=== PATIENT | female | born 1960 | race Caucasian/White ===

== ENCOUNTER → 2017-05-29 | Day surgery (SDC) | payer BC, MEDICARE ==
[2017-05-24 10:27] VITALS: BMI 25.0
[~2017-05-29] VITALS: Ht 162.6 cm; Wt 68.2 kg
[~2017-05-29] MED LIST: AMIT10TA6 PO; AMLO-110 PO; ASPI81TA28 PO; ATEN-173 PO; ATOR-26 PO; FLUO40CA8 PO; FLUT1INH INH; KETAMINE HCL INJ 50 MG/ML 10 ML VIAL ONE; LEVO200T PO; LEVO25TA5 PO; LIDOCAINE HCL 2% 2 ML VIAL (20MG/ML) ONE; NTRGSL/4 UT; ONDANSETRON INJ 2 MG/ML 2 ML VIAL IV PRN; PROPOFOL IV EMULSION 10 MG/ML 20 ML VIAL IV ONE; VIT PO; VNTHFA/IN INH; ZOLP10TA6 PO
[2017-05-29 09:17] VITALS: Ht 162.6 cm; Wt 68.2 kg
[2017-05-29 09:35] VITALS: TEMP 36.9
--- NOTE | 2017-05-29 09:53 | Endo History and Physical ---
History & Physical Date of Service: May 29, 2017. Chief Complaint: SCREENING HX POLYPS Referring Physician: DR. SERVIN History of Present Illness Patient with a history of non-advanced colon polyps. Presents for surveillance colonoscopy today. Past Surgical History Hx Cardiac Surgery: Yes (HEART CATH, NO STENTS) Hx Internal Defibrillator: No Hx Pacemaker: No Hx Abdominal Surgery: Yes (PARTIAL HYSTER, FULL HYSTER, LAPAROSCOPIES X4-5, DYAN) Hx of Implantable Prosthesis: No Hx Post-Op Nausea and Vomiting: No Hx Cancer Surgery: No Hx Thoracic Surgery: Yes (BRONCHIAL BIOPSY(?)) Hx Orthopedic: No Hx Urinary Tract Surgery: No Hysterectomy Splenic repair Cholecystectomy Family History Esophogeal CA Social History Smoking Status: Current Every Day Smoker Hx Substance Use: No Hx Alcohol Use: No Allergies Coded Allergies: NO KNOWN DRUG ALLERGIES (Verified Allergy, Unknown, ., 05/29/17) Uncoded Allergies: Metal (Allergy, Intermediate, Rash, infection, 08/19/13) Current Medications Reported Home Medications Medications Dose Route/Sig Max Daily Dose Days Date Category [Vit ] 500 PO 05/29/17 Reported Nitrostat (Nitroglycerin) 0.4 Mg Tab 0.4 Mg UT UD PRN 05/24/17 Reported Breo Ellipta (Fluticasone Furoate-Vilanterol) 1 Inh Inh 1 Puff INH QAM 05/24/17 Reported Ventolin Hfa (Albuterol) 200 Puffs/07772 Mcg Aers 2-4 Puffs INH Q6H PRN 05/24/17 Reported Norvasc (Amlodipine Besylate) 5 Mg Tab 5 Mg PO QAM 05/24/17 Reported Lipitor (Atorvastatin Calcium) 80 Mg Tab 80 Mg PO QAM 05/24/17 Reported Levothyroxine Sodium 25 Mcg Tab 1 Tab PO QAM 05/24/17 Reported Elavil (Amitriptyline Hcl) 10 Mg Tab 10 Mg PO HS 05/24/17 Reported Prozac (Fluoxetine HCl) 40 Mg Cap 40 Mg PO HS 05/24/17 Reported Aspirin Ec (Aspirin) 81 Mg Tab 81 Mg PO QAM 08/19/13 Reported Zolpidem Tartrate 10 Mg Tab 10 Mg PO HS 08/19/13 Reported Tenormin (Atenolol) 25 Mg Tab 2 Tabs PO QAM 08/19/13 Reported Synthroid (Levothyroxine Sodium) 200 Mcg Tab 200 Mcg PO QAM 08/19/13 Reported Vital Signs Weight (Kilograms): 68.18 Height (Feet): 5 Height (Inches): 4 Date Time Temp Pulse Resp B/P (MAP) Pulse Ox O2 Delivery O2 Flow Rate FiO2 05/29/17 09:35 36.9 67 22 138/66 (90) 91 Room Air Physical Exam General Appearance: no apparent distress Respiratory/Chest: Auscultation: deminished air movement Cardiovascular: Heart Auscultation: RRR Abdomen: Inspection & Palpation: soft Assessment and Plan Patient for colonoscopy today to screen for colon polyps. We discussed the risks and benefits to include bleeding, infection, perforation and discomfort.
--- NOTE | 2017-05-29 10:32 | GI REPORT ---
Procedure Date: 05/29/2017 9:59 AM Procedure: Colonoscopy Indications: High risk colon cancer surveillance: Personal history of colonic polyps Medicines: Monitored Anesthesia Care Complications: No immediate complications. Estimated blood loss: Minimal. Estimated Blood Loss: Estimated blood loss was minimal. Procedure: Pre-Anesthesia Assessment: - Prior to the procedure, a History and Physical was performed, and patient medications, allergies and sensitivities were reviewed. The patient's tolerance of previous anesthesia was reviewed. - The risks and benefits of the procedure and the sedation options and risks were discussed with the patient. All questions were answered and informed consent was obtained. - Patient identification and proposed procedure were verified prior to the procedure by the physician, the nurse and the clothes shaker. The procedure was verified in the procedure room. - Pre-procedure physical examination revealed no contraindications to sedation. - ASA Grade Assessment: IV - A patient with severe systemic disease that is a constant threat to life. - After reviewing the risks and benefits, the patient was deemed in satisfactory condition to undergo the procedure. - The anesthesia plan was to use monitored anesthesia care (MAC). - Immediately prior to administration of medications, the patient was re-assessed for adequacy to receive sedatives. - The heart rate, respiratory rate, oxygen saturations, blood pressure, adequacy of pulmonary ventilation, and response to care were monitored throughout the procedure. - The physical status of the patient was re-assessed after the procedure. After I obtained informed consent, the scope was passed under direct vision. Throughout the procedure, the patient's blood pressure, pulse, and oxygen saturations were monitored continuously. The scope was introduced through the anus and advanced to the cecum, identified by appendiceal orifice and ileocecal valve. The scope was introduced through the and advanced to. The colonoscopy was technically difficult and complex due to restricted mobility of the colon and a tortuous colon. Successful completion of the procedure was aided by withdrawing the scope and replacing with the pediatric colonoscope and applying abdominal pressure. The patient tolerated the procedure well. The quality of the bowel preparation was good. Findings: The perianal and digital rectal examinations were normal. Pertinent negatives include normal sphincter tone. Internal hemorrhoids were found during retroflexion. The hemorrhoids were mild. The exam was otherwise without abnormality. Impression: - Internal hemorrhoids. - The examination was otherwise normal. - No specimens collected. Recommendation: - Discharge patient to home (ambulatory). - Advance diet as tolerated today. - Repeat colonoscopy in 5 years for surveillance. - Return to GI office PRN. Bk Guillory D.O. Bk Guillory, 05/29/2017 10:31:34 AM This report has been signed electronically. Note Initiated On: 05/29/2017 9:59 AM I attest to the content of the Intraoperative Record and orders documented therein, exceptions below
--- NOTE | 2017-05-29 10:33 | Discharge Instructions ---
Endoscopy Patient Instructions Date / Procedure(s) Performed May 29, 2017. Colonoscopy Allergy Information Coded Allergies: NO KNOWN DRUG ALLERGIES (Verified Allergy, Unknown, ., 05/29/17) Uncoded Allergies: Metal (Allergy, Intermediate, Rash, infection, 08/19/13) Discharge Date / Findings May 29, 2017. Interal hemorrhoids Provider Instructions Activity Restrictions - No exercising or heavy lifting for 24 hours. - Do not drink alcohol the day of the procedure. - Do not drive a car or operate machinery until the day after the procedure. - Do not make any important decisions or sign important papers in 24 hours after the procedure. Following Day: - Return to full activity which may include returning to work/school. Diet Start your diet with liquids and light foods (jello, soup, juice, toast). Then eat your usual diet if not nauseated. Treatment For Common After Affects For mild abdominal pain, bloating, or excessive gas: - Rest - Eat lightly - Lie on right side Follow-Up Information Repeat colonoscopy in 5 years Anesthesia Information What You Should Know You have had a procedure that required some medicine to reduce anxiety and discomfort. This treatment is called moderate sedation. After receiving the treatment, you may be sleepy, but you will be able to breathe on your own. The effects of the treatment may last for several hours. Follow these instructions along with Activity/Diet recommendations noted above: * Do NOT do anything where dizziness or clumsiness would be dangerous. * Rest quietly at home today, then you can be up and about tomorrow. * Have a responsible person stay with you the rest of today. * You may have had an I.V. today. If so, you may take the dressing off later today. Recommendations Call your doctor if: * Trouble breathing * Continuous vomiting for more than 24 hours * Temperature above 101 degrees * Severe abdominal pain or bloating * Pain not relieved by pain medicine ordered * There is increased drainage or redness from any incision * A large amount of rectal bleeding greater than 2-3 tablespoons. (If you had a polyp/s removed or have hemorrhoids, a small amount of blood - from the rectum is to be expected.) * You have any unanswered questions or concerns. IN THE EVENT OF A SERIOUS EMERGENCY, GO TO THE NEAREST EMERGENCY ROOM Your discharge instructions were prepared by provider Bk Guillory. Patient Instructions Signature Page Ivy Valdez Patient (or Guardian) Signature/Date: I have read and understand the instructions given to me by my caregivers. Caregiver/RN/Doctor Signature/Date: The above-named patient and/or guardian has received patient instructions on this date. + Original Patient Signature Page (only) stays with chart. Please make copy for patient.
--- NOTE | 2017-05-29 10:51 | Anesthesiology Progress Note ---
Anesthesia Post Op Note Date & Time May 29, 2017 at 10:50 Vital Signs Pain Intensity: 0 Vital Signs Past 12 Hours Date Time Temp Pulse Resp B/P (MAP) Pulse Ox O2 Delivery O2 Flow Rate FiO2 05/29/17 10:34 74 22 115/62 (79) 97 Room Air 05/29/17 09:35 36.9 67 22 138/66 (90) 91 Room Air Notes Mental Status: alert / awake / arousable, participated in evaluation Pt Amnestic to Procedure: Yes Nausea / Vomiting: adequately controlled Pain: adequately controlled Airway Patency, RR, SpO2: stable & adequate BP & HR: stable & adequate Hydration State: stable & adequate Anesthetic Complications: no major complications apparent
[2017-05-29 11:04] VITALS: BP 131/67; PULSE 66; O2SAT 90
== END | disposition home or self-care (01) ==
LOC: C.GI 09:10
PROVIDERS: ATTEND Internal Medicine Gastroenterology
DX: Z12.11 Encounter for screening for malignant neoplasm of colon (principal); Z86.010 Personal history of colon polyps; K64.8 Other hemorrhoids; F17.200 Nicotine dependence, unspecified, uncomplicated; Z79.899 Other long term (current) drug therapy

== ENCOUNTER → 2017-06-29 | Outpatient (CLI) | payer MEDICARE ==
[~2017-06-29] MED LIST changes: -KETAMINE HCL INJ 50 MG/ML 10 ML VIAL ONE; -LIDOCAINE HCL 2% 2 ML VIAL (20MG/ML) ONE; -ONDANSETRON INJ 2 MG/ML 2 ML VIAL IV PRN; -PROPOFOL IV EMULSION 10 MG/ML 20 ML VIAL IV ONE
--- NOTE | 2017-06-30 06:13 | PAP/PSG TECHNICIAN REPORT ---
[facility] [employer] Polysomnogram Report Study name: None Report date: 06/30/2017 Study date: 06/29/2017 Referring Physician: Raheem Landis M.D. Name: ELLE ESTRADA Interpreting Physician: Jose Antonio Whitaker M.D. Date of : 1960 Software [employer]: Bre Spears RPS. Sex: Female Age: 57 StudyType: PSG Weight: 149 lbs Height: 57 years, Height 5' 4.75" Neck Circum:12.5inches BMI: 24.98 Medications: Ambien 10mg, Fluoxetine HCl 40mg, Vit D3, Norvasc 5mg, Breo Ellipta 100-25mcg/inh, Lipitor 80mg, Elavil 10mg, Levoxyl 25mcg, ASA 81mg, Ventolin, Flexeril 10mg, Tenormin 25mg, Debrox Solution, Levoxyl 200mcg, Nitroglycerine 0.4mg Patient History Study started on room air with no ETCO2 monitoring in room #6. 57 yr old female here tonight for a possible split psg. She complains of loud snoring and EDS. She has problems with SO and SM insomnia. She takes Ambien every night and will be taking it tonight before getting into bed. Her ESS=9/24. Neck circ=12.5inches Parameters Monitored NPSG: E1-M2, E2-M1, Fp1-M2, Fp2-M1, F3-M2, F4-M2, F4-M1, C3-M2, C4-M2, C4-M1, O1-M2, O2-M2, O2-M1, T3-M2, T4-M1, P3-M2, P4-M1, CHIN1, CHIN2, HR, EKG, Legs, PFLOW, SNOR, FLOW, CFLOW, Tidal Volume, THOR, ABDO, SpO2, PLTH, CPRESS, ETCO2 Wave, ETCO2, pH Sleep Architecture Sleep Stages Time at Lights Off 8:44:59 PM STAGES Time (min.) TST (%) Time at Lights On 5:18:29 AM Wake 199.5 -- Total Recording Time (TRT) 513.50 min. N1 42.5 14 Total Sleep Period (TSP) 449.5 min. N2 221.0 70 Total Sleep Time (TST) 314.0min. N3 27.0 9 Awake Time 199.5 min. REM 23.5 7 Wake after Sleep Onset 167.5 min. Sleep Efficiency (SE) 61 % Sleep Onset Latency ([place]) 32.0 min. Number of Stage 1 Shifts None Awakenings 40 Stage Changes 147 Number of REM periods 5 REM 23.5 7 REM Latency 393.0 min. NREM 290.5 93 Body Position Analysis Supine Right Left Side Prone Vertical Total Sleep Time (min.) 120.0 142.5 157.0 299.50 0.0 0.0 Total Sleep Time (%) 5% 45% 50% 95 0% N/A% Total Sleep Time REM (min.) 0.0 23.5 0.0 None 0.0 0.0 Total Sleep Time NREM (min.) 14.5 119.0 157.0 None 0.0 0.0 Intermittent Wake (min.) 105.5 37.6 56.4 None 0.0 0.0 Total Sleep Period (%) 12% None None None None None Arousals Myoclonus (PLM) * Events Count Index Events Count Index Spontaneous 26 5 Events Awake (PLMW) 225 67.7 Respiratory 0 0.0 Events Asleep w/ Arousal (PLMA) 20 3.8 PLM 18 4 Events Asleep w/o Arousal (PLMS) 167 31.9 Snoring 2 0 Total Asleep 187 35.7 Total 46 9 Total 412 48 Respiratory Analysis * CA OA MA CH H RERA Total Count 0 0 0 0 0 0 0 Index 0.0 0.0 0.0 0 0.0 0 0.0 Mean Duration 0.0 0.0 0.0 0.00 0.0 0.0 0.0 Longest Duration 0.0 0.0 0.0 0.00 0.0 0.0 0.0 Respiratory Event Summary Total Supine ~Supine Right Left Prone REM NREM Apneas Count 0 0 0 0 0 N/A 0 0 Index 0.0 0 0 0.0 0.0 N/A 0 0 Hypopneas (4% Desat) Count 0 0 0 0 0 N/A 0 0 Index 0.0 0.0 0 0.0 0.0 N/A 0.0 0.0 Apneas & All Hypopneas Count 0 0 0 0 0 N/A 0 0 Index 0.0 0 0 0 0 N/A 0.0 0.0 Respiratory Events (Business Intelligence Etl Developer+All Hyp+RERA) Count 0 0 0 0 0 N/A 0 0 Index 0.0 0 0 0.0 0.0 N/A 0.0 0.0 Respiratory Related Arousal Count 0 0 0 0 0 N/A 0 0 Index 0.0 0 0 0 0 N/A 0 0 Snoring Analysis Supine Right Left Prone REM NREM Total Snore duration 13.1 min Snores count 6 586 148 N/A 6 734 740 Snore mean duration 1.1 Sec Snores index 25 247 57 N/A 15.3 151.6 141.4 TST with snoring (%) 4.2% Desaturation Event Summary: Minimum %SpO2 Event Count Mean/Min/Max Duration(sec.) Desaturation Index % Time In Bed > 90 0 N/A 0.0 13.8 86 - 90 5 54.0 / 47.8 / 60.0 1.3 46.5 81 - 85 1 23.0 / 23.0 / 23.0 0.3 38.0 76 - 80 0 N/A 0.0 1.7 71 - 75 0 N/A 0.0 0.0 66 - 70 0 N/A 0.0 0.0 61 - 65 0 N/A 0.0 0.0 56 - 60 0 N/A 0.0 0.0 51 - 55 0 N/A 0.0 0.0 < 50 0 N/A 0.0 0.0 Total REM NREM Awake <50% 0.0 min. 0.0 min. 0.0 min. 0.0 min. 51 - 60% 0.0 min. 0.0 min. 0.0 min. 0.0 min. 61 - 70% 0.0 min. 0.0 min. 0.0 min. 0.0 min. 71 - 80% 8.6 min. 0.0 min. 7.7 min. 0.9 min. 81 - 90% 428.1 min. 23.5 min. 278.9 min. 125.7 min. 91 - 100% 70.0 min. 0.0 min. 3.5 min. 66.5 min. Average 87 85 85 89 Minimum SpO2 79 82 79 80 Desaturation Event Index 0.7 2.6 0.2 1.2 # Desat. Events below 89% 6 1 1 4 Time(%) with Saturation below 89% 77.0 4.6 56.1 16.2 Time(min.) with Saturation below 89% 390.1 23.5 284.5 82.1 Time (mins) REM (mins) NREM (mins) % of TST SpO2 Below 90% 2 1 N1 98.7 SpO2 Below 88% 2 0 0 89 Heart Rate Analysis Min (bpm) Max (bpm) Average (bpm) Awake 30 78 63 NREM 54 76 62 REM 59 73 66 Overall 54 76 62 Supplemental O2 Values Minimum O2 level: None Value Start Time End Time [employer] Comments Mrs. Estrada slept in the right, left and supine positions. No cardiac arrhythmia noted. PLM's were noted. No bruxism noted. Snoring was noted and scored as a 3 on a scale of 1 through 5. (0=no snoring, 5=snoring loud enough to be heard through a closed door or down the [place] way) She awoke to use the restroom 1 time during the night. She stated that she slept about the same as usual. At 4:19am her oxygen saturation was under 89% for 304.5 minutes and her AHI was 0 for 306 minutes.One liter of oxygen was added . The final report will be interpreted and signed by a sleep physician. The completed physician report will then be placed in the patient medical record. Therapy (cm H2O) 0 TIB (min.) 513.5 TST (min.) 314.0 Sleep Onset (min.) 32.0 REM Onset From Sleep (min.) 393.0 Sleep Efficiency % 61 Wakefulness (%) 39 Wakefulness (min.) 199.5 NREM 1 (%) 14 NREM 1 (min.) 42.5 NREM 2 (%) 70 NREM 2 (min.) 221.0 NREM 3 (%) 9 NREM 3 (min.) 27.0 REM (%) 7 REM (min.) 23.5 # Arousals 46 Arousal Index 9 # Snore 740 Snore Index 141.4 AHI 0.0 AHI Supine 0 AHI Non-Supine 0 NREM AHI 0.0 REM AHI 0.0 RDI 0.0 # Obstructive Apnea 0 # Central Apnea 0 # Mixed Apnea 0 # Hypopneas 0 RERAs 0 Total Respiratory Events 1 Time Below SpO2 89% (min.) 308.0 Mean NREM SpO2 (%) 85 Mean REM SpO2 (%) 85 Mean Sleep SpO2 (%) 85 Min NREM SpO2 (%) 79 Min REM SpO2 (%) 82 Position Supine (min.) 120.0 Position Non-supine (min.) 299.5 LM Index Sleep 35.7 LM Index NREM 32.4 LM Index REM 76.6 Mean Heart Rate (bpm) 62 Min Heart Rate (bpm) 54
--- NOTE | 2017-07-03 20:15 | POLYSOMNOGRAPH REPORT ---
CLINICAL DATA: A 57-year-old female with a BMI of 25, referred by Dr. Adonay Landis and Dr. Eileen Walter for evaluation of possible sleep apnea. She has loud snoring and excessive daytime sleepiness. She takes Ambien every night for insomnia and took it the night of this study. Her [place] sleepiness score was 9/24. SLEEP ARCHITECTURE: Total sleep period was 449.5 minutes. Total sleep time was 314 minutes divided between 290.5 minutes of non-REM sleep and 23.5 minutes of REM sleep. Sleep onset latency was delayed at 32 minutes. REM latency was delayed at 393 minutes. Sleep efficiency reduced at 61%. Wake after sleep onset was elevated at 167.5 minutes. Sleep consisted of stage N1 14%, stage N2 70%, stage 9%, and REM 7%. AROUSAL DATA: Forty six arousals were recorded for an index of 9 per hour. Twenty six were spontaneous. Eighteen were due to PLM events. 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 RESPIRATORY DATA: There was no evidence of sleep apnea. The AHI was 0. No respiratory events were recorded. OXIMETRY DATA: Transient hypoxemia was seen. Oxygen anjali was 79%. Mean saturation was 87%. ELECTROCARDIOGRAM: Heart rates ranged from 54-76 beats per minute. No arrhythmias were noted. CONCESSION ATTENDANT'S COMMENTS: The patient slept in the right, left, and supine positions. Snoring was moderate, rated 3 on a scale of 1-5. She awoke once to use the restroom. At 4:19 a.m., her oxygen saturation was 89% for 304.5 minutes and her AHI was 0. Oxygen 1 liter per minute was added with some improvement in her oxygenation. IMPRESSION: 1. No evidence of clinically significant sleep apnea/hypopnea. 2. Nocturnal hypoxemia, corrected with oxygen 1-2 liters per minute nasal cannula. RECOMMENDATIONS: The patient should be started on oxygen at 1-2 liters per minute. Evaluation for causes of nocturnal hypoxemia could be considered. [facility]
== END | disposition home or self-care (01) ==
LOC: C.NEUR 21:00
PROVIDERS: ATTEND Family Medicine
DX: G47.33 Obstructive sleep apnea (adult) (pediatric) (principal); R06.83 Snoring